=== PATIENT | male | born 1985 | race Caucasian/White ===

== ENCOUNTER 2016-10-26 09:18 | Outpatient (CLI) | payer BC ==
--- NOTE | 2016-10-26 20:46 | Ultrasound Report ---
EXAM: SCROTAL ULTRASOUND EXAM DATE: 10/26/2016 09:59 A.M. CLINICAL HISTORY: Right testicular pain. Palpable lump. COMPARISON: None. TECHNIQUE: Real-time scanning was performed with static images obtained. Both color-flow and Doppler spectral analysis were utilized. FINDINGS: Right: Testis: 5.1 x 2.6 x 3.8 cm. Normal size and echotexture. No mass, calcification, or abnormal blood fl ow. Epididymis: 1.0 x 0.8 x 1.5 cm. Normal size and echotexture. No mass or abnormal blood flow. Two cyst s in the head of the epididymis measuring 0.5 x 0.3 x 0.4 cm and 0.3 x 0.4 x 0.3 cm. Hydrocele: None. Varicocele: None. Left: Testis: 4.8 x 2.4 x 3.4 cm. Normal size and echotexture. No mass, calcification, or abnormal blood fl ow. Epididymis: 0.9 x 0.8 x 1.3 cm. Normal size and echotexture. No mass or abnormal blood flow. Hydrocele: None. Varicocele: None. IMPRESSION: Two small right epididymal head cysts corresponding to the palpable abnormality, otherwise unremarkab le scrotal ultrasound. [facility] Referring Provider Line: [phone] SITE ID: [id number]
== END 2016-10-26 09:19 | disposition home or self-care (01) ==
LOC: DI 09:18
PROVIDERS: ATTEND Physician Assistant Medical
DX: N50.811 Right testicular pain (principal); N50.3 Cyst of epididymis
CPT/HCPCS: 76870

== ENCOUNTER 2018-08-19 08:32 | Outpatient (CLI) | payer OTHER, MEDICAID ==
--- NOTE | 2018-08-19 08:52 | XRAY Report ---
Reason: EMPLOYMENT SCREENING [facility] Procedure Date: 08/19/2018 Accession Number: [id number] / [id number] Procedure: WCP - Chest 2 View X-Ray CPT Code: 66791 FULL RESULT: EXAM: CHEST RADIOGRAPHY EXAM DATE: 08/19/2018 08:41 AM. CLINICAL HISTORY: EMPLOYMENT SCREENING [facility]. COMPARISON: None. TECHNIQUE: 2 views. FINDINGS: Lungs/Pleura: No focal opacities evident. No pleural effusion. No pneumothorax. Normal volumes. Mediastinum: Heart and mediastinal contours are unremarkable. Other: None. IMPRESSION: Normal 2-view chest radiography. [facility]
== END 2018-08-19 08:33 | disposition home or self-care (01) ==
LOC: DI.WCP 08:32
PROVIDERS: ATTEND Family Medicine
DX: Z13.9 Encounter for screening, unspecified (principal)
CPT/HCPCS: 71046

== ENCOUNTER 2020-10-03 13:08 | Outpatient (CLI) | payer OTHER ==
--- NOTE | 2020-10-03 13:58 | SLEEP CARE CONSULTATION ---
Information from patient questionnaire entered by Luzmaria Garcia. I have reviewed and concur with the information entered by Luzmaria Garcia. This document represents the service I personally performed and the decisions made by me, Yadi Abdi ARNP. History of Present Illness Service Date and Time: 10/03/2020 1308 Reason for Visit: New patient Chief Complaint: reports: Unrefreshed sleep, Snoring, Excessive daytime sleepiness, Fatigue. denies: Observed pauses in breathing Date of Onset: 2 years Usual bedtime: 10:30 pm Time it takes to fall asleep: 20-40 minutes Snores at night: Yes Observed to quit breathing while asleep: No Sleeps alone due to snoring: No Number of times waking at night: 1-3 Reasons for waking at night: reports: Bathroom, Other (unknown reason). denies: Choking, Gasping for air Toss, Turn, or Twitch while sleeping: Yes Recalls having dreams: No (not often) Usually gets out of bed at: 6-6:30 am Feels refreshed in the morning: No Morning headache: No Sleepy or fatigued during the day: Yes Ever fallen asleep while driving: No Takes day naps: No Dreams during day naps: No (maybe) Prior sleep studies: No Additional HPI information: I had the pleasure of seeing DELBERT LANGSTON today regarding the possibility of him having a sleep disorder. His current complaints are excessive daytime sleepiness, fatigue, snoring and unrefreshed sleep. He states his complains about his snoring. His snoring is worse when on his back. He states he does have back pain issues. 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 He has a 2 year old at home who awakens him a night when he is off. He has not woke up choking or gasping for air. His has not told him that he stops breathing at night. He states he can feel very tired during the day but if anything (no matter how small) is going on he will not dose off. He has difficulty breathing through his nose but denies allergies. He thinks it is due to his [employer] work environment. 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 Patient is and lives in [place]. Have you smoked in the past 12 months: No Cigarettes per day (20/pack): 20 Years of smokin Quit date: 15 years ago Smoking Pack Years: 10.0 Alcohol use: No Caffeine use: Yes Caffeine amount and frequency: 2-3 cups a day, every day Family History Family history of sleep disordered breathing: No (don't know really) Allergies and Home Medications Drug allergies reviewed: Yes (Sulfa drugs) Home medication list reviewed: Yes Allergy and home medication list: Meloxicam for back pain Review of Systems Weight gain over past 5 years: 30 Cardiovascular: denies: high blood pressure Gastrointestinal: denies: heartburn Neurological: denies: headaches Psychiatric: reports: anxiety (with difficulty swallowing) Ear/Nose/Throat: reports: nasal congestion (occasional), wisdom teeth removed (may have one left, not sure). denies: tonsillectomy Endocrine: denies: thyroid disease Musculoskeletal: reports: back pain Immunologic: denies: allergies to food or environment Physical Exam Blood Pressure: 110/64 Cuff size: wrist Heart Rate: 79 O2 Saturation: 98 Height: 6 ft 2 in Weight: 229 lb Body Mass Index: 29.4 BMI Classification: Overweight Neck circumference: 16.25 (inches) Nostrils: patent to airflow Mouth and throat: narrow oropharynx Soft palate: long Hard palate: normal Uvula: normal Uvula visualization: 100% Mallampati Class I Tonsils: small Neck: normal w/o lymphadenopathy or thyromegaly Heart: regular rate and rhythm Lungs: clear bilaterally Impression and Plan 1. Suspected Obstructive Sleep Apnea-Hypopnea Syndrome, as suggested by a history of loud and irregular snoring, unrefreshed sleep, cognitive impairment, and excessive daytime sleepiness. Narrow oropharynx and obesity are common predisposing factors for obstructive sleep apnea-hypopnea syndrome. I recommend proceeding to polysomnography to confirm the diagnosis and to assess severity. If the patient has significant sleep disordered breathing, a manual CPAP titration study will also be performed to find the optimal treatment pressure. I informed the patient of what the sleep studies involve and after some discussion, obtained agreement to proceed. The pathophysiology of obstructive sleep apnea-hypopnea syndrome was discussed with the patient and health risks of cardiovascular and cerebrovascular disease if not treated. AAS brochure for obstructive sleep apnea-hypopnea syndrome given and reviewed. Risks of drowsy driving discussed in detail and patient advised to avoid long distance driving and to toe puller at the first sign of drowsiness. Patient agreed to plan. * Schedule polysomnography +- manual CPAP titration study and return in 1-2 weeks after the study to discuss result and initiate therapy. * Avoid long distance driving or driving when feeling sleepy. * Avoid alcohol, sedative and muscle relaxant around bedtime. * Attempt to lose weight. * Review instructions provided by trained office staff on how to prepare for the sleep study. * Return for follow-up after sleep study completed. Counseling Topics: Spare mask, Weight loss health impact Visit Type: In Office Time Spent with Patient (minutes): 30 Provider Statement: I spent 100% of the Face to Face Visit with the patient with greater than 50% spent counseling the patient and coordination of care.
[2020-10-03 13:59] VITALS: BP 110/64
== END 2020-10-03 13:09 | disposition home or self-care (01) ==
LOC: SC 13:08
PROVIDERS: ATTEND Nurse Practitioner Family
DX: G47.10 Hypersomnia, unspecified (principal); G47.8 Other sleep disorders; R41.89 Other symptoms and signs involving cognitive functions and awareness; R06.83 Snoring; Z87.891 Personal history of nicotine dependence
CPT/HCPCS: 99203; 99212

== ENCOUNTER 2020-10-12 08:14 | Outpatient (CLI) | payer OTHER ==
--- NOTE | 2020-10-12 10:34 | MRI Report ---
PROCEDURE: Lumbar Spine W/O INDICATIONS: LOW BACK PAIN TECHNIQUE: Noncontrast sagittal T1 spin echo and T2 fast echo, sagittal STIR, axial T1 and T2 fast spin echo thr ough the lumbar spine. In cases with scoliosis, additional coronal T2 fast spin echo may be performe d. COMPARISON: None. FINDINGS: Image quality: Excellent. Alignment and Curvature: There is normal bony alignment. Bone Marrow: Marrow is of normal overall signal. No acute vertebral body compression fractures. Spinal Cord: Conus medullaris terminates at the normal level. Visualized cord demonstrates normal s ignal and size. Regional Soft Tissues: Prevertebral and paraspinous soft tissues are within normal limits. T12-L1: No spinal canal or neural foraminal stenosis. L1-L2: No spinal canal or neural foraminal stenosis. L2-L3: No spinal canal or neural foraminal stenosis. L3-L4: Disc bulge flattens the ventral thecal sac. Mild displacement of the descending L4 nerve chi ts within both subarticular zones. No neural foraminal stenosis. L4-L5: Disc bulge and superimposed protrusion flattening the ventral thecal sac. Minimal displaceme nt of the descending L5 nerve roots within both subarticular zones. Foraminal components of the disc bulge and facet hypertrophy combine to produce mild bilateral neural foraminal stenosis. L5-S1: Disc bulge flattens the ventral thecal sac with mild displacement of the descending S1 nerve roots in both subarticular zones. Foraminal components of the disc bulge and moderate bilateral neur al foraminal stenosis. Disc material flattens the under surfaces of the exiting L5 nerve roots within both neural foramina. IMPRESSION: Degenerative changes in the lower lumbar spine, worst at L5-S1. Correlate for any potent ial L5 radicular symptoms. Reviewed by: Paulo Cerda MD on 10/12/2020 10:32 AM PDT Approved by: Paulo Cerda MD on 10/12/2020 10:32 AM PDT Station ID: [id number]
--- NOTE | 2020-10-12 11:45 | XRAY Report ---
PROCEDURE: Hips 2V BILAT INDICATIONS: Low back pain TECHNIQUE: 2 views of the bilateral hips (AP view the pelvis and frog-leg lateral views of both hips) . COMPARISON: None FINDINGS: Bones: Hip joint spaces are maintained. No osteophytosis, subchondral sclerosis, or subchondral cysti c change. No periarticular erosions or other features of arthritic change. No fractures or dislocatio ns. No suspicious bony lesions. The visualized pelvic ring appears intact. Soft tissues: No suspicious soft tissue calcifications or masses. IMPRESSION: No arthritic changes in the hips. Reviewed by: Paulo Cerda MD on 10/12/2020 11:44 AM PDT Approved by: Paulo Cerda MD on 10/12/2020 11:44 AM PDT Station ID: [id number]
--- NOTE | 2020-10-12 12:10 | XRAY Report ---
PROCEDURE: Thoracic Spine 2 View INDICATIONS: Low back TECHNIQUE: 3 views of the thoracic spine were acquired. COMPARISON: None. FINDINGS: Bones: Normal thoracic vertebral body height and alignment. No suspicious lytic or blastic osseous le eliazar. No degenerative changes. Soft tissues: No paravertebral stripe thickening. IMPRESSION: Normal study. No degenerative changes or pain generating abnormality identified. Reviewed by: Paulo Cerda MD on 10/12/2020 12:09 PM PDT Approved by: Paulo Cerda MD on 10/12/2020 12:09 PM PDT Station ID: [id number]
--- NOTE | 2020-10-12 12:11 | XRAY Report ---
PROCEDURE: Lumbar Spine 2 View INDICATIONS: Low back pain TECHNIQUE: 2 views of the lumbar spine were acquired. COMPARISON: None. FINDINGS: There are 5 nonrib-bearing lumbar-type vertebral bodies. No listhesis. Vertebral body heights maintai candelaria. Disc height loss from L3-L4 through L5-S1 with associated degenerative endplate changes and face t hypertrophy. No suspicious lytic or blastic osseous lesion. IMPRESSION: Spondylitic changes in the lower lumbar spine, overall moderate. Reviewed by: Paulo Cerda MD on 10/12/2020 12:10 PM PDT Approved by: Paulo Cerda MD on 10/12/2020 12:10 PM PDT Station ID: [id number]
== END 2020-10-12 08:15 | disposition home or self-care (01) ==
LOC: DI 08:14
PROVIDERS: ATTEND Nurse Practitioner Family
DX: M47.817 Spondylosis without myelopathy or radiculopathy, lumbosacral region (principal); M47.816 Spondylosis without myelopathy or radiculopathy, lumbar region

== ENCOUNTER 2020-10-25 20:50 | Outpatient (CLI) | payer OTHER | END 2020-10-25 20:51 | disposition home or self-care (01) | LOC: SC 20:50 | PROVIDERS: ATTEND Nurse Practitioner Family | DX: G47.33 Obstructive sleep apnea (adult) (pediatric) (principal) | CPT/HCPCS: 95810 ==

== ENCOUNTER 2020-11-28 16:18 | Outpatient (CLI) | payer OTHER ==
--- NOTE | 2020-11-28 16:40 | SLEEP CARE CONSULTATION ---
Information from patient questionnaire entered by Fransisco Carter. I have reviewed and concur with the information entered by Fransisco Carter. This document represents the service I personally performed and the decisions made by , Yadi Abdi ARNP. History of Present Illness Service Date and Time: 11/28/2020 1618 Initial [place] Sleepiness Scale score: 3 (in 2020) Current [place] Sleepiness Scale score: 4 Additional HPI information: DELBERT LANGSTON returns via video Telehealth visit for follow up and results of the recently performed polysomnography. I explained the pathophysiology behind obstructive sleep apnea. We then spent qu ite a bit of time discussing different treatment options. For mild obstructive sleep apnea, surgery and oral appliance are alternatives to nasal CPAP therapy but in moderate or severe cases, nasal CPAP is the most effective and reliable treatment. Because apnea is primarily in supine position, then positional management therapy could be effective. Methods discussed such as positioning with pillows, using a T-shirt with tennis balls in the back, and shown commercial products that have a pillow format on back to prevent supine sleep. I reviewed the impact of weight changes on sleep apnea and strongly recommended losing weight. After some discussion, the patient opted to go with the nasal CPAP therapy. Nasal autoCPAP set at 4-15 cmH20 will be ordered with rationale explained. A manual titration study will be ordered if unable to find optimal pressure with office adjustments. I explained how CPAP machine works with sample devices RespirSoundFocuss Dreamstation and ResAudioBeta [id number] and what to expect when using the machine. Using CPAP every night in order to get used to it was emphasized. Patient advised to put CPAP mask on before getting into bed so as not to fall asleep without CPAP. To assist acclimation to CPAP use, it could also be used for a short time during day while reading or watching TV. The patient was instructed to call the CPAP supplier to discuss any mechanical problem that may occur. If the mask given is uncomfortable or is difficult to keep on through the night even with adjustment, contact the CPAP supplier as many will replace with another mask style if notified before 30 days. If snoring or perceives is not getting enough air or too much air from the machine, notify this office. Patient was cautioned about risks of drowsy driving until sleepiness symptoms resolve. Sleep Study - Results Type of Sleep Study: Polysomnography Prior sleep studies: No Polysomnography/Home Sleep Study results: IMPRESSION: The quality of the study is good. The patient had normal sleep efficiency. The sleep architecture was abnormal for sleep fragmentation and reduced amount of time spent in REM sleep. Respiratory monitoring showed mild obstructive sleep apnea-hypopnea (AHI = 5.3) associated with frequent arousals, oxyhemoglobin desaturation and mild hypoxia (richardson oxygen saturation of 88%). The respiratory events occurred almost exclusively during supine sleep (supine AHI = 6.6; non-supine = 1.69). Snore was moderate to loud in intensity. There was severe periodic leg movement of sleep contributing to the sleep fragmentation. Cardiac rhythm was normal sinus rhythm without significant arrhythmia. No abnormal behavior (parasomnia) observed during the night. Allergies and Home Medications Home medication list reviewed: Yes (naltrexone for chronic pain, low dose) Review of Systems Review of systems same as previous: Yes (no changes) Physical Exam Vital signs obtained and entered by: Telehealth visit to reduce exposure during Covid pandemic Height: 6 ft 2 in Impression and Plan 1. Obstructive Sleep Apnea-Hypopnea Syndrome, mild, with lowest oxygen satura tion of 88%. Obviously this is the cause of the patients symptoms of unrefreshed sleep, and excessive daytime sleepiness. Positive pressure therapy could benefit his overall health and reduce risk for cardiovascular and cerebrovascular adverse events. As mentioned above, the patient will be started on nasal autoCPAP therapy with pressure set at 4-15 cmH2O. Compliance guidelines also reviewed. A copy of compliance guidelines will be given for reference at check out. Because the apnea is more severe supine, I instructed to avoid sleeping supine using pillow positioning until able to start CPAP use. 2. Periodic limb movement, severe, that did fragment patients sleep. Periodic limb movement of sleep (PLMS) is characterized by episodes of repetitive limb movements that occur during sleep and usually involve the lower limbs. The etiology is unknown but can be associated with low serum ferritin level, restless leg syndrome (RLS), neuropathy, spinal cord diseases, kidney disease, rheumatological disorders, narcolepsy, obstructive sleep apnea, and REM sleep behavior disorder. Caffeine can also aggravate PLMS and should be avoided. Sleep hygiene methods can also improve sleep as well as lifestyle changes such as regular exercise. Patient was advised that no treatment is needed at this time. If symptoms increase, then further evaluation is indicated. * Nasal auto CPAP therapy, pressure at 4-15 cm H2O. * Attempt to lose weight. * Avoid alcohol consumption near bedtime. * Avoid supine sleep until using CPAP. * The patient is again cautioned about driving until sleepiness completely resolves. * Return one month after CPAP obtained. I will assess response to therapy and compliance at that time. Counseling Topics: Weight loss health impact Visit Type: In Office Patient Location: Home Location of Provider: Office Patient agrees and consents to this telehealth visit type: Yes Patient agrees to have their insurance billed: Yes Time Spent with Patient (minutes): 20 Provider Statement: I spent 100% of the Face to Face Visit with the patient with greater than 50% spent counseling the patient and coordination of care.
== END 2020-11-28 16:19 | disposition home or self-care (01) ==
LOC: SC 16:18
PROVIDERS: ATTEND Nurse Practitioner Family
DX: G47.33 Obstructive sleep apnea (adult) (pediatric) (principal); G47.61 Periodic limb movement disorder

== ENCOUNTER 2022-04-26 08:57 | Day surgery (SDC) | payer MEDICAID ==
[2022-04-26] MEDS ORDERED: LACTATED RINGERS 1,000 ML IV ONE (08:58)
--- NOTE | 2022-04-26 10:22 | ANESTHESIA ---
Pre-Anesthesia VS, & Labs - Diagnosis irregular bowel habits - Procedure colonoscopy Vital Signs: Temp Pulse Resp BP Pulse Ox O2 Flow Rate 36.6 C 53 L 16 136/77 H 100 04/26/22 09:06 04/26/22 09:06 04/26/22 09:06 04/26/22 09:06 04/26/22 09:06 Height: 6 ft 2 in Weight (kg): 100 kg Body Mass Index: 28.3 BMI Classification: Overweight - NPO >8 hours Home Medications and Allergies Home Medications: Ambulatory Orders Fluticasone [Flonase] 2 puffs NS DAILY 04/25/22 Naltrexone HCl/Bupropion HCl [Contrave ER 8-90 mg Tablet] 5 mg PO DAILY 04/25/22 Fluticasone [Flonase] 2 puffs NS DAILY 04/25/22 Naltrexone HCl/Bupropion HCl [Contrave ER 8-90 mg Tablet] 5 mg PO DAILY 04/25/22 Allergies/Adverse Reactions: Allergies Allergy/AdvReac Type Severity Reaction Status Date / Time Sulfa (Sulfonamide Allergy Rash Verified 04/25/22 12:44 Antibiotics) Anes History & Medical History - Anesthetic History Anesthesia Complications: reports: No previous complications - Medical History Cardiovascular: reports: None Pulmonary: reports: None Gastrointestinal: reports: None Urinary: reports: None Musculoskeletal: reports: Chronic back pain Endocrine/Autoimmune: reports: None Skin: reports: None Exam General: Alert, Oriented x3 Dental: WNL Mouth Opening: Greater than 4 Fingerbreadths Neck Mobility: Normal Mallampati classification: I Thyromental Distance: greater than 6 cm Respiratory: Lungs clear Cardiovascular: Regular rate, Normal S1, Normal S2 Plan Anesthesia Type: Total IV Consent for Procedure(s) Verified and Reviewed: Yes Code Status: Attempt Resuscitation ASA classification: 2-Mild systemic disease Is this case an emergency?: No
[2022-04-26] MEDS ORDERED: PROPOFOL 500 MG/50 ML 500 MG/50 ML VIAL ONE (10:26)
--- NOTE | 2022-04-26 11:02 | HISTORY & PHYSICAL EXAMINATION ---
Chief Complaint - Chief Complaint Chief Complaint: loose stool for 1 year History of Present Illness - History Obtained From Records Reviewed: yes History obtained from: pt Exam Limitations: none - History of Present Illness HPI Comment/Other: loose stool, irregular bowel habits for a year or more History - Past Medical History Cardiovascular: reports: None Respiratory: reports: None Endocrine/Autoimmune: reports: None GI: reports: None : reports: None HEENT: reports: None Psych: reports: None Musculoskeletal: reports: Chronic back pain Derm: reports: None MRSA Hx?: Yes Meds/Allgy - Home Medications Home Medications: Ambulatory Orders Medication Instructions Recorded Confirmed Fluticasone [Flonase] 2 puffs NS DAILY 04/25/22 04/26/22 Naltrexone HCl/Bupropion HCl 5 mg PO DAILY 04/25/22 04/25/22 [Contrave ER 8-90 mg Tablet] - Allergies Allergies/Adverse Reactions: Allergies Allergy/AdvReac Type Severity Reaction Status Date / Time Sulfa (Sulfonamide Allergy Rash Verified 04/25/22 12:44 Antibiotics) Review of Systems - Other Findings Other Findings: 10 pt ros as above otherwise unremarkable Exam - Vital Signs Reviewed Vital Signs: Yes Vital Signs: Vital Signs x48h Temp Pulse Resp BP Pulse Ox 04/26/22 09:06 36.6 C 53 L 16 136/77 H 100 - Physical Exam General Appearance: positive: No acute distress, Alert Eyes Bilateral: positive: PERRL, EOMI, No scleral icterus ENT: positive: No signs of dehydration Neck: positive: No JVD, Trachea midline Respiratory: positive: No respiratory distress, Breath sounds nml Cardiovascular: positive: Regular rate & rhythm Abdomen: positive: Non-tender, No distention Neurologic/Psychiatric: positive: Oriented x3 Conclusion/Plan - Problem List (1) Irregular bowel habits Conclusion/Plan: plan diagnostic colonoscopy with biopsies parq held and consent obtained
[2022-04-26] MEDS ORDERED: SIMETHICONE 40 MG/0.6 ML 30 ML BOTTLE ONE (11:19)
[2022-04-26] MEDS ORDERED: SIMETHICONE 40 MG/0.6 ML 30 ML BOTTLE PO ONE (11:20)
[2022-04-26] MEDS ORDERED: PROPOFOL 200 MG/20 ML VIAL IVP ONE (11:22)
[2022-04-26] MEDS ORDERED: LACTATED RINGERS 400 ML IV ONE (11:44)
--- NOTE | 2022-04-26 12:10 | ANESTHESIA POST OP EVALUATION ---
Anesthesia Post Eval - Post Anesthesia Eval Vitals: Last Vital Signs Temp 36.7 C 04/26/22 11:55 Pulse 62 04/26/22 11:55 Resp 16 04/26/22 11:55 BP 116/69 04/26/22 11:55 Pulse Ox 99 04/26/22 11:55 O2 Flow Rate CV Function Including HR & BP: Stable Pain Control: Satisfactory Nausea & Vomiting: Negative Mental Status: Baseline Respiratory Status: Airway Patent Hydration Status: Satisfactory Anesthesia Complications: None
[2022-04-26 12:13] VITALS: BP 116/63
== END 2022-04-26 08:58 | disposition home or self-care (01) ==
LOC: SDS 08:57
PROVIDERS: ATTEND Surgery
PROC: 0DBF8ZX Excision of Right Large Intestine, Via Natural or Artificial Opening Endoscopic, Diagnostic (ICD-10-PCS; 2022-04-26)
PROC: 0DBG8ZX Excision of Left Large Intestine, Via Natural or Artificial Opening Endoscopic, Diagnostic (ICD-10-PCS; principal; 2022-04-26 10:00)
DX: R19.8 Other specified symptoms and signs involving the digestive system and abdomen (principal); R19.5 Other fecal abnormalities
CPT/HCPCS: 45380; A9270; J7120